=== PATIENT | female | born 1960 | race African-American/Black ===

== ENCOUNTER 2023-05-20 15:22 | Emergency (ER) | payer OTHER ==
[2023-05-20 15:58] VITALS: BP 113/72; PULSE 89; RESP 20; TEMP 98; BMI 36.3
== END 2023-05-20 18:36 | disposition home or self-care (01) ==
LOC: JERFT 15:22
DX: Z76.0 Encounter for issue of repeat prescription (principal); E11.40 Type 2 diabetes mellitus with diabetic neuropathy, unspecified
CPT/HCPCS: 82962; 99282-25

== ENCOUNTER → 2024-03-03 | Day surgery (SDC) | payer OTHER ==
[2024-03-02 09:50] VITALS: BMI 38.0
[2024-03-03 13:09] VITALS: RESP 20
[2024-03-03 13:10] VITALS: BP 121/61; PULSE 66; TEMP 97.6
== END | disposition home or self-care (01) ==
LOC: JASU-ENDO 04:18
PROVIDERS: ATTEND Internal Medicine Gastroenterology
PROC: 0DB78ZX Excision of Stomach, Pylorus, Via Natural or Artificial Opening Endoscopic, Diagnostic (ICD-10-PCS; 2024-03-03)
PROC: 0DJD8ZZ Inspection of Lower Intestinal Tract, Via Natural or Artificial Opening Endoscopic (ICD-10-PCS; 2024-03-03)
PROC: 0DB68ZX Excision of Stomach, Via Natural or Artificial Opening Endoscopic, Diagnostic (ICD-10-PCS; principal; 2024-03-03 11:30)
DX: Z12.11 Encounter for screening for malignant neoplasm of colon (principal); Z01.818 Encounter for other preprocedural examination; K29.50 Unspecified chronic gastritis without bleeding; E11.9 Type 2 diabetes mellitus without complications; Z79.84 Long term (current) use of oral hypoglycemic drugs; Z98.84 Bariatric surgery status
CPT/HCPCS: 43239; G0121; 82962; 88305-TC; 88342-TC

== ENCOUNTER 2024-04-06 11:05 | Emergency (ER) | payer OTHER ==
[2024-04-06 11:20] VITALS: BP 120/84; PULSE 79; RESP 18; TEMP 98; BMI 38.0
[2024-04-06] MEDS ORDERED: ACETAMINOPHEN 500 MG TABLET (FP) ONE (13:10)
[2024-04-06] MEDS ORDERED: IBUPROFEN 600 MG TABLET (FP) PO ONE (13:10)
[2024-04-06] MEDS: IBUPROFEN 600 MG TABLET (FP) PO ONE (13:13)
[2024-04-06] MEDS: ACETAMINOPHEN 500 MG TABLET (FP) PO ONE (13:13)
== END 2024-04-06 13:53 | disposition home or self-care (01) ==
LOC: JERFT 11:05
DX: S92.412A Displaced fracture of proximal phalanx of left great toe, initial encounter for closed fracture (principal); W22.8XXA Striking against or struck by other objects, initial encounter; Y93.01 Activity, walking, marching and hiking
CPT/HCPCS: 73660-TC-LT-FY; 99284-25

== ENCOUNTER 2024-09-03 09:24 | Emergency (ER) | payer OTHER ==
[2024-09-03 09:32] VITALS: TEMP 98.4; BMI 33.6
[2024-09-03 11:17] LABS: BASO % 0.5 % (0-2.0); EOS % 1.4 % (0-4.5); HEMATOCRIT 42.1 % (32.4-45.2); LYMPH % 23.3 % (8-40); MCH 30.1 pg (25.7-33.7); MCHC 33.4 g/dl (32.0-36.0); MEAN CELL VOLUME 90.3 fl (80-96); MEAN PLT VOLUME 8.7 fl (7.5-11.1); MONO % 8.5 % (3.8-10.2); NEUT % 66.3 % (42.8-82.8); PLATELET COUNT 257 10^3/uL (134-434); RBC 4.66 M/mm3 (3.60-5.2); RDW 15.7 % (11.6-15.6); WHITE BLOOD COUNT 5.5 K/mm3 (4.0-10.0)
[2024-09-03] MEDS: ONDANSETRON 4 MG/2 ML VIAL IVPUSH ONE (11:23)
[2024-09-03] MEDS: SODIUM CHLORIDE 0.9% 500 ML INFUS.BAG IV ONE (11:23)
[2024-09-03] MEDS: ACETAMINOPHEN 1000 MG/100 ML BAG IVPB ONE (11:24)
[2024-09-03] MEDS: ONDANSETRON 4 MG/2 ML VIAL IVPB ONE (11:24)
[2024-09-03 11:35] LABS: POTASSIUM 5.1 mmol/L (3.5-5.1)
[2024-09-03 11:37] LABS: ALBUMIN 3.6 g/dl (3.4-5.0); BLOOD UREA NITROGEN 11.7 mg/dL (7-18); CALCIUM 10.1 mg/dL (8.5-10.1)
[2024-09-03 11:40] LABS: CREATININE 0.7 mg/dL (0.55-1.3)
[2024-09-03 11:42] LABS: BILIRUBIN,TOTAL 0.6 mg/dL (0.2-1); TOT PROT 8.1 g/dl (6.4-8.2)
[2024-09-03] MEDS ORDERED: FAMOTIDINE 20 MG/50 ML IVPB 20 MG/50 ML MG IVPB ONE (12:36)
[2024-09-03] MEDS ORDERED: MAG HYDROX/AL HYDROX/SIMETH 30 ML UNIT-DOSE CUP ONE (12:36)
[2024-09-03] MEDS: MAG HYDROX/AL HYDROX/SIMETH 30 ML UNIT-DOSE CUP PO ONE (12:52)
[2024-09-03] MEDS: FAMOTIDINE 20 MG/50 ML IVPB 20 MG/50 ML MG IVPB ONE (12:52)
[2024-09-03 15:58] VITALS: BP 126/72; PULSE 80; RESP 16
== END 2024-09-03 19:34 | disposition home or self-care (01) ==
LOC: JER 09:24
PROC: 3E033GC Introduction of Other Therapeutic Substance into Peripheral Vein, Percutaneous Approach (ICD-10-PCS; principal; 2024-09-03)
PROC: 3E033GC Introduction of Other Therapeutic Substance into Peripheral Vein, Percutaneous Approach (ICD-10-PCS; 2024-09-03)
DX: R11.2 Nausea with vomiting, unspecified (principal); R10.13 Epigastric pain
CPT/HCPCS: 36415; 71045-TC-FY; 74177-TC; 80053; 83690; 84484; 85025; 93005; 93010; 99285-25; Q9967